=== PATIENT | female | born 1990 ===

== ENCOUNTER 2020-08-04 18:16 | Inpatient (IN) | payer OTHER ==
[~2020-08-04] VITALS: Ht 162.6 cm; Wt 2.7 kg
[~2020-08-04 18:16] MED LIST: ATABEX PRENATAL1 TAB; OMEGA-31000 MG
== END 2020-08-08 15:04 | disposition home or self-care (01) | DRG 788 ==
LOC: LDR 18:16 → OB/GYN 08-05 22:47
PROVIDERS: ADMIT Specialist; ATTEND Specialist
PROC: 10D00Z1 Extraction of Products of Conception, Low, Open Approach (ICD-10-PCS; principal; 2020-08-04)
PROC: 3E033VJ Introduction of Other Hormone into Peripheral Vein, Percutaneous Approach (ICD-10-PCS; 2020-08-04)
PROC: 4A1HXFZ Monitoring of Products of Conception, Cardiac Rhythm, External Approach (ICD-10-PCS; 2020-08-04)
DX: O61.0 Failed medical induction of labor (principal); O14.94 Unspecified pre-eclampsia, complicating childbirth; O24.429 Gestational diabetes mellitus in childbirth, unspecified control; Z3A.37 37 weeks gestation of pregnancy; Z37.0 Single live birth; Z20.822 Contact with and (suspected) exposure to COVID-19